=== PATIENT | female | born 1985 | race Two or more races ===

== ENCOUNTER 2017-12-02 07:45 | Inpatient (IN) | payer OTHER ==
[2017-12-02] MEDS ORDERED: TERBUTALINE SULFATE 1 MG/ML VIAL IV PRN (08:04)
[2017-12-02] MEDS ORDERED: EPSOM SALT 454 GM TP PRN (08:04)
[2017-12-02] MEDS ORDERED: OXYTOCIN 20 UNIT in LR 1,000 ML IV PRN (08:04)
[2017-12-02] MEDS ORDERED: MISOPROSTOL 200 MCG TAB PR PRN (08:04)
[2017-12-02] MEDS ORDERED: OLIVE OIL 118 ML BTL MISC PRN (08:04)
[2017-12-02] MEDS ORDERED: LR 1,000 ML IV PRN (08:04)
[2017-12-02] MEDS ORDERED: TERBUTALINE SULFATE 1 MG/ML VIAL ONE (08:21)
[2017-12-02] MEDS ORDERED: AMMONIA AROMATIC 1 EACH AMP IH ONE (08:21)
[2017-12-02] MEDS ORDERED: OLIVE OIL 118 ML BTL ONE (08:21)
[2017-12-02] MEDS ORDERED: LIDOCAINE 1% 300 MG/30 ML SDV ONE (08:21)
[2017-12-02] MEDS ORDERED: OXYTOCIN 10 UNIT/ML VIAL ONE (08:22)
[2017-12-02] MEDS ORDERED: MISOPROSTOL 200 MCG TAB ONE (08:22)
[2017-12-02 08:26] LABS: PLATELET COUNT 174 10^3/uL (150-400)
[2017-12-02] MEDS ORDERED: HYDROCODONE/APAP 5/325 TAB PO PRN (10:54)
[2017-12-02] MEDS ORDERED: ACETAMINOPHEN 325 MG TAB PO PRN (10:54)
--- NOTE | 2017-12-02 11:01 | OBDEL ---
Info Type: Vaginal Presentation at Delivery: Vertex L&D Analgesia/Anesthesia Type: Nitrous GBS+: No - Care Provider Workday Consultant/FRONTLOAD DRIVER: Alis Dawson Indications for Delivery: Spontaneous Labor Vaginal Delivery - Delivery Provider Delivery Physician/CNM: Erika Wiggins - Labor and Delivery Onset of Contractions Date: 12/02/17 Onset of Contractions Time: 04:30 Onset of Contractions Type: Spontaneous Rupture of Membranes Date: 12/02/17 Rupture of Membranes Time: 04:30 Rupture of Membranes Type: Spontaneous Amniotic Fluid Color: Bloody Dilation Complete Date: 12/02/17 Dilation Complete Time: 08:31 Placenta Delivery Date: 12/02/17 Placenta Delivery Time: 09:15 Total Hours of Labor: 4 Episiotomy: Midline Laceration: 2nd Degree, Other (Specify) (first degree left periurethral) Repair: 3-0, Vicryl Vaginal Sponge Count Correct: Yes Vaginal Needle Count Correct: Yes Vaginal Sweep Performed: Yes EBL: 300 - Medications Labor Augmentation/Induction Methods Used: None [place] Data DEIDRA: 12/07/17 Gestational Age: 39 week(s) and 2 day(s) Johnson Delivery Date: 12/02/17 Delivery Time: 09:06 Sex of : Male Score (1 Min): 8 Score (5 Min): 9 ICD10 Worksheet Patient Problems: Problems Problem Status Onset (spontaneous vaginal delivery) Acute
--- NOTE | 2017-12-02 11:19 | PDMN ---
Medical Necessity Medical necessity: C/M review: patient meets INPT criteria under [facility] [place] [facility] Vaginal delivery: viable male , MD anticipates > 2 MN LOS for ongoing med nec for eval and TX of above.
--- NOTE | 2017-12-02 11:51 | OBPP ---
Progress Note Assessment/Plan: Assessment: s/p bleeding after delivery Plan: silver nitrate to superficial lac 12/02/17 11:48 Subjective/ Course: 12/02/17 11:49 pt fine - amb to BR without dizziness, urinated without problems. using ice for comfort and had ibu. baby did good with first latch. Objective: 12/02/17 08:15 Patient ABO/Rh A POSITIVE 12/02/17 08:15 on exam of perineum the superficial lac to left of urethra is oozing. silver nitrate stick used on surface. good hemostasis. Uterine Position/Fundal Height: Umbilicus -1 Uterine Tone: Firm
--- NOTE | 2017-12-02 11:55 | GHP ---
[f rep st] PREOP HISTORY AND PHYSICAL DATE OF ADMISSION: 12/02/2017 HISTORY UPON ADMISSION: The patient is a 32-year-old, G2, A1, [place] female at 39+ weeks' gestation , with an estimated due date of 12/07/2017, established by a 14-week ultrasound, who presents in acti ve labor. The patient had spontaneous onset of bleeding and contractions at 4:30 a.m. It became elmo arent that this was bloody fluid of a moderate amount and it was assumed the patient had broken her w ater at that time as well, as later there was no sign of an intact sac. The patient reports initiall y the contractions were 5 or greater minutes apart; however, upon presentation to Labor and Delivery, they picked up and were approximately every 2-3 minutes apart. The patient was initially checked up on arrival and had only an anterior lip of the cervix remaining and was felt to have blood colored am niotic fluid. The head was at 0 station and the patient was beginning to feel pushy. heart to alfredo were reassuring and the patient did have a category 1 tracing initially upon arrival. The patien t was feeling in pretty good control with her labor and desired to try nitrous and did not want to pu rsue getting an epidural placed. CARE: The patient has been followed with [facility] since 9 weeks' gestation. Th is was an unplanned and the patient was unsure about the exact timing of her last period in March. The first ultrasound the patient had was at 14 weeks' gestation. The patient was found to stevenson ve a placenta with a marginal cord insertion and she had several ultrasounds through the to watch estimated weight and fluid. We have had a discussion with the patient that lack of earlier da ting leaves some ambiguity as to the exact gestational age, but the baby's growth curve has remained reassuring from the 11th percentile at 22 weeks, to the 29th percentile at 26 weeks, to the 16th perc entile at 35 weeks. Fluid level has been fine and the baby has been in the vertex presentation. The patient's has been otherwise uncomplicated. PAST MEDICAL HISTORY: The patient has a history of HSV 1 with only cold sores in the past once or tw ice. No genital HSV. Also, the patient has had mild cystitis in the past. PAST SURGICAL HISTORY: Odontectomy in college. PAST OBSTETRIC HISTORY: TAB in the 1st trimester in October 2016. This was treated with a prescript ion oral medication. ALLERGIES: The patient has no known drug allergies. CURRENT MEDICATIONS: Only vitamins. LABS: Include maternal blood type A positive with negative antibody screen. RPR nonreactiv e. Rubella immune. Hepatitis B surface antigen negative. HIV negative. Standard screening was neg ative for genetic disorders as well as cystic fibrosis, SMA, fragile X. TSH was normal. Hematocrit has remained stable through the at 38%. Urinalysis and culture were negative. Pap smear n ormal. Gonorrhea and chlamydia negative. Verified testing was negative. One-hour Glucola normal. GBS culture was negative. SOCIAL HISTORY: The patient is to Jourdan, who is an anesthesiologist here at our hospital. Th e patient is a nonsmoker. No alcohol or drug use. PHYSICAL EXAM: GENERAL: Upon admission, the patient is a well-developed, well-nourished, [place] fe male in physical discomfort with active labor. The patient is well-composed, but noticeably uncomfor table with the urge to push. The patient was using nitrous for the contraction pain. VITAL SIGNS: The patient's initial blood pressures were in the 140s/90s, but difficult to obtain a blood pressure in between contraction pains. The patient is afebrile. See nursing documentation for full details o n vital signs. heart tones revealed a baseline in the 130s to 140s with good variability and a ccelerations. There is dropout of the heart rate monitoring during contractions which possibly could be variables. However, quick recovery. PELVIC: Initial pelvic exam by myself was complete d ilation at +1 station. Thereafter, the patient began pushing very effectively. EXTREMITIES: Nonten blanca, no edema. ASSESSMENT: Intrauterine at 39+ weeks' gestation in active labor to begin pushing. Expect delivery soon. PLAN: Continue to use nitrous as needed and push for delivery. /[id number]/MODL
[2017-12-02] MEDS: IBUPROFEN 600 MG TAB PO PRN ×2 (15:35→21:39)
[2017-12-02] MEDS: DOCUSATE SODIUM 100 MG CAP PO PRN (21:39)
[2017-12-03] MEDS: IBUPROFEN 600 MG TAB PO PRN ×4 (03:15→22:45)
--- NOTE | 2017-12-03 09:09 | OBPP ---
Progress Note Assessment/Plan: Assessment: 32 yo [id number] PPD 1 s/p - doing well. Plan: Continue routine cares, anticipate dc home tomorrow. 12/03/17 09:06 Subjective/ Course: 12/02/17 11:49 pt fine - amb to BR without dizziness, urinated without problems. using ice for comfort and had ibu. baby did good with first latch. 12/03/17 09:08 Doing well, ambulating, voiding without difficulty. Mod amt lochia. going well. Objective: 12/02/17 08:15 Patient ABO/Rh A POSITIVE 12/02/17 08:15 Temp Pulse Resp BP Pulse Ox 36.6 C 75 14 121/85 H 12/02/17 20:40 12/02/17 20:40 12/02/17 20:40 12/02/17 20:40 Uterine Position/Fundal Height: Umbilicus -2 Uterine Tone: Firm Physical Exam - Physical Exam Respiratory: lungs clear Cardiac/Chest: regular rate, rhythm Abdomen: normal bowel sounds, other (fundus firm at u-2) Extremities: pedal edema, Cassie's sign (negative bilaterally) Skin: normal color
[2017-12-03 09:22] VITALS: RESP 16
--- NOTE | 2017-12-03 10:03 | OBPP ---
Progress Note Assessment/Plan: Assessment: 32 yo [id number] PPD 1 s/p - doing well. Plan: Continue routine cares, anticipate dc home tomorrow. 12/03/17 09:06 Subjective/ Course: 12/02/17 11:49 pt fine - amb to BR without dizziness, urinated without problems. using ice for comfort and had ibu. baby did good with first latch. 12/03/17 09:08 Doing well, ambulating, voiding without difficulty. Mod amt lochia. going well. Objective: 12/02/17 08:15 Patient ABO/Rh A POSITIVE 12/02/17 08:15 Temp Pulse Resp BP Pulse Ox 36.3 C 69 16 117/79 94 12/03/17 08:00 12/03/17 08:00 12/03/17 08:00 12/03/17 08:00 12/03/17 08:00
[2017-12-04] MEDS: IBUPROFEN 600 MG TAB PO PRN ×2 (05:21→12:04)
[2017-12-04 09:11] VITALS: PULSE 76; TEMP 97.2; O2SAT 95
[2017-12-04] MEDS: DOCUSATE SODIUM 100 MG CAP PO PRN (09:17)
[2017-12-04 09:22] VITALS: BP 122/83
--- NOTE | 2017-12-04 09:32 | OBGCSDC ---
General Delivery Information - General Info : 2 Para: 1 Abortions: 0 Type: Vaginal L&D Analgesia/Anesthesia Type: Nitrous Admission Date: 12/02/17 Labs: Patient ABO/Rh A POSITIVE 12/02/17 08:15 Hct 38.9 % (38.0-47.0) 12/02/17 08:15 - Hospital Course : 12/02/17 11:49 pt fine - amb to BR without dizziness, urinated without problems. using ice for comfort and had ibu. baby did good with first latch. 12/03/17 09:08 Doing well, ambulating, voiding without difficulty. Mod amt lochia. going well. 12/04/17 09:29 S) Pt doing well, reports min pain and bleeding. she is ambulating and voiding without difficulty. She is . She desires discharge home today. O) VSS, afebrile constitutional: WNWF, A&Ox3 HEENT: normocephalic, atraumatic, supple Heart: RRR, No murmur Chest: CTA-B Abdomen: Soft, nontender Uterus: Firm at U-2 Lochia: Minimal rubra Perineum: Intact, healing well Extremities: Trace edema, and negative Cassie's sign Neuro: Grossly normal A) 32-year-old S/P PPD#2 P) Discharge home today Continue Pelvic rest x6wks Discussed danger signs (infection, preeclampsia, depression, heavy bleeding, etc ) RTO in 4/6 weeks 12/04/17 09:31 Vaginal - Delivery Provider Delivery Physician/CNM: Erika Wiggins - Diagnosis Labor: Spontaneous Rupture of Membranes Type: Spontaneous Amniotic Fluid Color: Bloody Episiotomy: Midline Laceration: 2nd Degree, Other (Specify) (first degree left periurethral) Repair: 3-0, Vicryl - Delivery EBL: 300 [place] Data DEIDRA: 12/07/17 Gestational Age: 39 week(s) and 4 day(s) Johnson Delivery Date: 12/02/17 Delivery Time: 09:06 Sex of Infant: Male [place] Weight (gm): 3010 kg Score (1 Min): 8 Score (5 Min): 9 Discharge Information - Discharge Information Condition: Good Instruction/Follow Up: Four Weeks, Six Weeks
== END 2017-12-04 14:30 | disposition home or self-care (01) | DRG 775 ==
LOC: FLD 07:45 → FOB 13:00
PROVIDERS: ADMIT Obstetrics & Gynecology; ATTEND Obstetrics & Gynecology
PROC: 10E0XZZ Delivery of Products of Conception, External Approach (ICD-10-PCS; principal; 2017-12-02)
PROC: 0KQM0ZZ Repair Perineum Muscle, Open Approach (ICD-10-PCS; principal; 2017-12-02)
DX: O70.1 Second degree perineal laceration during delivery (principal); Z37.0 Single live birth; Z3A.39 39 weeks gestation of pregnancy
CPT/HCPCS: J2590; J3105

== ENCOUNTER → 2017-12-13 | Outpatient (CLI) | payer OTHER | LOC: FLAB 09:57 | PROVIDERS: ATTEND Obstetrics & Gynecology | DX: Z39.1 Encounter for care and examination of lactating mother (principal) | CPT/HCPCS: G0463 ==